=== PATIENT | male | born 1960 | race Caucasian/White ===

== ENCOUNTER 2019-01-04 13:51 | Emergency (ER) | payer MEDICARE ==
[2019-01-04 15:28] LABS: BASOPHILS % (AUTO) 0.9 % (0.0-5.0); EOSINOPHILS % (AUTO) 1.2 % (0.0-8.0); HEMATOCRIT 47.6 % (42-54); LYMPHOCYTES % (AUTO) 30.9 % (21.0-51.0); MEAN CORPUSCULAR HEMOGLOBIN 31.1 pg (27.0-33.0); MEAN CORPUSCULAR HGB CONC 34.3 g/dL (32.0-36.0); MEAN CORPUSCULAR VOLUME 90.6 fL (79-99); MONOCYTES % (AUTO) 7.4 % (3.0-13.0); NEUTROPHILS % (AUTO) 59.6 % (40.0-77.0); PLATELET COUNT (AUTO) 355 K/uL (130-400); RED BLOOD CELL COUNT(AUTO) 5.26 MIL/uL (4.50-6.20); RED CELL DISTRIBUTION WIDTH 14.4 % (11.0-15.5); WHITE BLOOD COUNT (AUTO) 13.9 K/uL (4.8-10.8)
[2019-01-04] MEDS ORDERED: DiphenhydrAMINE HCL 50 MG/ML VIAL ONE (15:31)
[2019-01-04] MEDS ORDERED: PROCHLORPERAZINE EDISYLATE 10 MG/2 ML VIAL ONE (15:32)
[2019-01-04] MEDS ORDERED: SODIUM CHLORIDE 0.9% 1000ML 1,000 ML IV ONE (15:32)
[2019-01-04 15:57] LABS: POTASSIUM 3.4 mmol/L (3.5-5.1)
[2019-01-04 16:02] LABS: ALBUMIN 4.1 g/dL (3.5-5.0); BILIRUBIN,TOTAL 0.8 mg/dL (0.2-1.0)
[2019-01-04] MEDS ORDERED: SUMATRIPTAN SUCCINATE 6 MG/VIAL 0.5ML SQ ONE (17:10)
[2019-01-04] MEDS ORDERED: KETOROLAC TROMETHAMINE 60 MG/2 ML VIAL ONE (17:10)
== END 2019-01-04 17:45 | disposition home or self-care (01) ==
LOC: EDH 13:51
DX: G43.909 Migraine, unspecified, not intractable, without status migrainosus (principal); I10 Essential (primary) hypertension; E78.5 Hyperlipidemia, unspecified; M81.0 Age-related osteoporosis without current pathological fracture; F12.10 Cannabis abuse, uncomplicated; Z87.442 Personal history of urinary calculi; Z72.0 Tobacco use
CPT/HCPCS: 36415; 70450; 80053; 85025; 96372; 96374; 96375; 99285; J0780; J1200; J1885; J3030; J7030

== ENCOUNTER → 2019-01-26 | Outpatient (CLI) | payer MEDICARE | END | disposition home or self-care (01) | LOC: RAH 07:41 | PROVIDERS: ATTEND Physical Medicine & Rehabilitation | DX: M50.321 Other cervical disc degeneration at C4-C5 level (principal); M25.78 Osteophyte, vertebrae | CPT/HCPCS: 72141 ==

== ENCOUNTER → 2019-11-07 | Outpatient (CLI) | payer MEDICARE | END | disposition home or self-care (01) | LOC: RAH 10:19 | PROVIDERS: ATTEND Physical Medicine & Rehabilitation | DX: M54.16 Radiculopathy, lumbar region (principal) | CPT/HCPCS: 72110 ==

== ENCOUNTER → 2019-11-11 | Outpatient (CLI) | payer MEDICARE ==
[~2019-11-11] MED LIST: GADODIAMIDE 10 MMOL/20 ML VIAL IV ONE
== END | disposition home or self-care (01) ==
LOC: RAH 10:28
PROVIDERS: ATTEND Physical Medicine & Rehabilitation
DX: M48.061 Spinal stenosis, lumbar region without neurogenic claudication (principal); M47.26 Other spondylosis with radiculopathy, lumbar region
CPT/HCPCS: 72158; A9579

== ENCOUNTER → 2020-05-04 | Outpatient (CLI) | payer MEDICARE ==
[2020-05-04 14:44] LABS: BASOPHILS % (AUTO) 0.9 % (0.0-5.0); EOSINOPHILS % (AUTO) 0.8 % (0.0-8.0); HEMATOCRIT 45.2 % (42-54); LYMPHOCYTES % (AUTO) 35.6 % (21.0-51.0); MEAN CORPUSCULAR HGB CONC 34.7 g/dL (32.0-36.0); MEAN CORPUSCULAR VOLUME 92.1 fL (79-99); MONOCYTES % (AUTO) 11.5 % (3.0-13.0); NEUTROPHILS % (AUTO) 50.7 % (40.0-77.0); PLATELET COUNT (AUTO) 302 K/uL (130-400); RED BLOOD CELL COUNT(AUTO) 4.91 MIL/uL (4.50-6.20); RED CELL DISTRIBUTION WIDTH 12.9 % (11.0-15.5); WHITE BLOOD COUNT (AUTO) 7.5 K/uL (4.8-10.8)
[2020-05-04 15:00] LABS: ALBUMIN 4.1 g/dL (3.5-5.0); BILIRUBIN,TOTAL 0.3 mg/dL (0.2-1.0); CREATININE 0.9 mg/dL (0.5-1.5); POTASSIUM 4.3 mmol/L (3.5-5.1); TOTAL PROTEIN, SERUM 7.6 g/dL (6.0-8.3)
== END | disposition home or self-care (01) ==
LOC: LAB 12:15
PROVIDERS: ATTEND Internal Medicine Gastroenterology
DX: R10.13 Epigastric pain (principal); R19.4 Change in bowel habit
CPT/HCPCS: 36415; 80053; 82150; 83630; 83690; 85025; 86677; 87046; 87177; 87493